=== PATIENT | male | born 1975 | race Caucasian/White ===

== ENCOUNTER → 2016-12-18 | Day surgery (SDC) | payer OTHER | LOC: OPS 08:05 | PROC: 0YUA0JZ Supplement Bilateral Inguinal Region with Synthetic Substitute, Open Approach (ICD-10-PCS; principal; 2016-12-18) | DX: K40.20 Bilateral inguinal hernia, without obstruction or gangrene, not specified as recurrent (principal); F10.10 Alcohol abuse, uncomplicated; F41.9 Anxiety disorder, unspecified; R10.9 Unspecified abdominal pain; Z80.3 Family history of malignant neoplasm of breast; Z78.9 Other specified health status; F17.210 Nicotine dependence, cigarettes, uncomplicated | CPT/HCPCS: 94664; 99070; J2704; J3010 ==